=== PATIENT | female | born 1965 | race African-American/Black ===

== ENCOUNTER 2022-08-15 14:44 | Emergency (ER) | payer OTHER, SELFPAY ==
[2022-08-15 15:17] VITALS: BP 110/66; PULSE 92; RESP 18; TEMP 36.6; O2SAT 95; BMI 23.2
--- NOTE | 2022-08-15 15:20 | ED_ITS ---
HPI - General Adult General Chief complaint: Psychiatric Symptoms Stated complaint: crisis Time Seen by Provider: 08/15/22 16:09 Source: patient Mode of arrival: ambulatory Limitations: no limitations History of Present Illness HPI narrative: Is a 56-year-old female with a past medical history of hypertension, diabetes, bipolar disorder, depression, polysubstance use and alcohol use who presents to the ER with complaints of increasing depression over the last few weeks with no complaints of suicidal or homicidal ideations. Patient denies hallucinations. Patient reports she is smoking crack daily and drinking about half a pt of alcohol daily. Patient reports she is taking medication for depression but she is unsure of the names of the medication. She does her prescribing psychiatrist but does not have a current therapist. Related Data Home Medications Medication Instructions Recorded Confirmed amlodipine 10 mg tablet 10 mg PO DAILY 08/15/22 08/15/22 aripiprazole 15 mg tablet (Abilify) 15 mg PO DAILY 08/15/22 08/15/22 aspirin 81 mg chewable tablet 81 mg PO DAILY 08/15/22 08/15/22 budesonide-formoterol HFA 160 2 puff inhalation BID 08/15/22 08/15/22 mcg-4.5 mcg/actuation aerosol inhaler (Symbicort) citalopram 40 mg tablet 40 mg PO DAILY 08/15/22 08/15/22 ibuprofen 800 mg tablet 800 mg PO TID PRN Pain 08/15/22 08/15/22 losartan 50 mg tablet (Cozaar) 50 mg PO DAILY 08/15/22 08/15/22 oxcarbazepine 300 mg tablet 300 mg PO BID 08/15/22 08/15/22 oxybutynin chloride 5 mg tablet 5 mg PO BID 08/15/22 08/15/22 pregabalin 50 mg capsule 50 mg PO BID 08/15/22 08/15/22 simvastatin 20 mg tablet 20 mg PO BEDTIME 08/15/22 08/15/22 albuterol sulfate 90 mcg/actuation 1 puff inhalation Q4H PRN 08/16/22 08/16/22 aerosol inhaler (Ventolin HFA) Shortness Of Breath Or Wheezing Allergies Allergy/AdvReac Type Severity Reaction Status Date / Time No Known Allergies Allergy Verified 08/15/22 15:17 Review of Systems Review of Systems: Yes all other systems are reviewed and are negative Constitutional: Constitutional: Reports no additional constitutional complaints, Denies body ache(s), Denies chills, Denies fever(s), Denies headache(s) and Denies weakness Eyes: Eyes: Reports no additional eye complaints and Denies change in vision ENT: Reports system reviewed and no additional complaints, except as documented, Denies dizziness, Denies headache(s), Denies nasal congestion, Denies nasal discharge and Denies neck pain Cardiovascular: Cardiovascular: Reports no additional cardiovascular complaints, Denies chest pain, Denies leg edema and Denies dyspnea Respiratory: Respiratory: Reports no additional respiratory complaints, Denies cough and Denies dyspnea Gastrointestinal: Gastrointestinal: Reports no additional gastrointestinal complaints, Denies abdominal pain, Denies diarrhea, Denies nausea and Denies vomiting Genitourinary: Genitourinary: Reports no additional female genitourinary complaints and Denies urinary incontinence Musculoskeletal: Musculoskeletal: Reports no additional musculoskeletal complaints, Denies back pain, Denies arthralgias, Denies joint swelling, Denies neck pain, Denies numbness and Denies tingling Integumentary/Breasts: Skin/Breast: Reports system reviewed and no additional complaints, except as docu and Denies rash Neurologic: Reports system reviewed and no additional complaints, except as documented, Denies dizziness, Denies headache(s), Denies numbness, Denies tingling and Denies weakness Psychiatric: Psychiatric: Reports depression, Denies homicidal ideation and Denies suicidal ideation [facility] Past Medical History Attestation statement: The following information was validated with the patient. Source: old records reviewed and nursing notes reviewed Social History Social History Alcohol intake: former Smoked in Last 30 Days: Yes Use of substances other than those prescribed or required for medical reasons: Yes Substance Use Type: Crack/Cocaine Substance Use Frequency: Occasionally Last Used Substance: Just Prior to Admission Advance Directives: No Advance Directives Information Provided: Yes Healthcare Proxy: No Guardian: No Physical Exam ED Vital Signs: Vital Signs - 24 hr 08/15/22 20:18 08/16/22 06:10 08/16/22 07:30 Temperature 98.9 F 98.2 F 97.9 F Pulse Rate 65 64 55 Respiratory Rate 16 16 16 Blood Pressure 124/75 183/96 H 163/85 H Pulse Oximetry 96 97 98 Oxygen Delivery Method Room Air Room Air Room Air 08/16/22 18:37 Temperature 97.8 F Pulse Rate 67 Respiratory Rate 15 Blood Pressure 130/69 Pulse Oximetry 98 Oxygen Delivery Method Room Air BMI result Body Mass Index 23.2 Const General: cooperative, healthy appearing, comfortable and no acute distress Orientation/consciousness: patient oriented x3 Limitations: no limitations HENMT Head: Yes normal to inspection Ears: hearing grossly normal bilaterally Eyes General: appearance normal, both eyes and all related structures Neck Neck: Yes normal visual inspection Chest Chest palpation & inspection: normal inspection of the chest Resp Effort & Inspection: normal respiratory effort Neuro General: patient oriented x3 and moves all extremities Cognition (Neuro): normal cognition Course Course Course Narrative: This is an RME: Additional HPI, ROS, PE not included below will be deferred to primary provider. [id number], hx of substance abuse and etoh abuse, presenting to the emergency department with complaints of worsening depression x last month. Endorsing SI without a plan. No HI. Living in [place] unhappy with living circumstances. Used cracked just prior to arrival. Plan: Call over to psych pod, pt moved over. Reevaluation(s) Reevaluation #1: Patient placed in physician observation pending disposition, eval by care team Reevaluation #2: physician observation continued: cooperative day and night, is a dual bedsearch. Will remain in observation until she improves or a bed is found Time: 12:54 Reevaluation #3: Patient is awake, alert, oriented x3, patient declined any SI or HI, patient would like to be discharged home, [facility] and will arrange for transportation to home. Time: 20:04 Medications Administered Generic Name Dose Route Start Last Admin Trade Name Freq PRN Reason Stop Dose Admin Amlodipine Besylate 10 mg 08/16/22 09:00 08/16/22 08:02 Amlodipine Besylate 10 Mg Tablet PO Not Given DAILY CHAVEZ Protocol Aripiprazole 15 mg 08/16/22 09:00 08/16/22 08:44 Aripiprazole 15 Mg Tablet PO 15 mg DAILY CHAVEZ Administration Aspirin 81 mg 08/16/22 09:00 08/16/22 08:44 Aspirin 81 Mg Tab.Chew PO 81 mg DAILY CHAVEZ Administration Escitalopram Oxalate 20 mg 08/16/22 09:00 08/16/22 08:44 Escitalopram Oxalate 20 Mg Tablet PO 20 mg DAILY CHAVEZ Administration Fluticasone/Vilanterol 1 puff 08/16/22 08:00 08/16/22 08:46 Fluticasone/Vilanterol 200/25 Blst.W.Dev INHALE 1 puff RBID CHAVEZ Administration Ibuprofen 800 mg 08/16/22 09:00 08/16/22 15:40 Ibuprofen 800 Mg Tablet PO 800 mg TID CHAVEZ Administration Losartan Potassium 50 mg 08/16/22 09:00 08/16/22 08:02 Losartan Potassium 50 Mg Tablet PO Not Given DAILY CHAVEZ Protocol Oxcarbazepine 300 mg 08/16/22 09:00 08/16/22 08:44 Oxcarbazepine 300 Mg Tablet PO 300 mg BID CHAVEZ Administration Oxybutynin Chloride 5 mg 08/16/22 09:00 08/16/22 10:17 Oxybutynin Chloride 5 Mg Tablet PO 5 mg BID CHAVEZ Administration Pregabalin 50 mg 08/16/22 09:00 08/16/22 08:44 Pregabalin 50 Mg Capsule PO 50 mg BID CHAVEZ Administration Discontinued Medications Generic Name Dose Route Start Last Admin Trade Name Freq PRN Reason Stop Dose Admin Amlodipine Besylate 10 mg 08/16/22 07:34 08/16/22 07:39 Amlodipine Besylate 10 Mg Tablet PO 08/16/22 07:35 10 mg ONCE ONE Administration Protocol Losartan Potassium 50 mg 08/16/22 07:34 08/16/22 07:39 Losartan Potassium 50 Mg Tablet PO 08/16/22 07:35 50 mg ONCE ONE Administration Protocol Medical Decision Making Medical Decision Making MDM Narrative: 56-year-old female with a history of bipolar disorder, depression, polysubstance use presents to the ER with increasing depression over the last few weeks with no complaints of SI, HI, hallucinations. Patient reports daily crack and alcohol use. Patient with no physical complaints. No concern for acute ingestion or trauma Patient will need screening labs, drug screen and once medically cleared will need a crisis evaluation Differential Diagnosis Differential Diagnoses: The differential diagnosis associated with the presentation includes Bipolar disorder, depression, adjustment disorder, polysubstance use Consult Healthcare Provider Management of the patient was discussed with: Junior Automation Engineer Lab Data MDM Lab Attestation statement: I reviewed the patient's lab results. 08/15/22 15:36 08/15/22 15:36 Labs: Lab Results 08/15/22 08/15/22 08/15/22 Range/Units 15:36 15:36 16:09 WBC 4.8 (4.8-10.8) X10*3/uL RBC 4.42 (4.20-5.50) X10*6/uL Hgb 13.3 (12.0-16.0) g/dl Hct 39.8 (37.0-47.0) % MCV 90.0 (80.0-98.0) fL MCH 30.1 (27.0-33.0) pg MCHC 33.4 (31.0-35.0) g/dl RDW 13.4 (11.0-16.0) % Plt Count 210 (160-400) X10*3/uL MPV 10.1 (9.4-12.3) fL Immature Gran % (Auto) 0.4 (0.0-0.4) % Neut % (Auto) 54.0 (45-73) % Lymph % (Auto) 37.3 (20-40) % [place] % (Auto) 5.2 (2-11) % Eos % (Auto) 2.3 (0-4) % Baso % (Auto) 0.8 (0-2) % Lymph # (Auto) 1.8 (1.2-4.9) X10*3/uL [place] # (Auto) 0.3 (0.1-1.2) X10*3/uL Eos # (Auto) 0.1 (0.0-0.4) X10*3/uL Baso # (Auto) 0.0 (0.0-0.2) X10*3/uL Abs Immat Gran (auto) 0.02 (0.00-0.03) X10*3/uL Absolute Neuts (auto) 2.6 (2.0-8.3) x10*3/uL Absolute Nucleated RBC 0.000 (0.0-0.012) X10*3/uL Nucleated RBC % (auto) 0.0 (0.0-0.2) /100WBC Sodium 141 (135-145) mmol/L Potassium 3.9 (3.3-5.1) mmol/L Chloride 106 (96-108) mmol/L Carbon Dioxide 26 (22-29) mmol/L Anion Gap 13 (12-20) BUN 22 H (9-16) mg/dL Creatinine 1.32 (0.5-1.4) mg/dL Estim Creat Clear Calc 45.1 Estimated GFR 41 Random Glucose 136 H (60-115) mg/dL Calcium 9.2 (8.4-10.2) mg/dL Total Bilirubin 0.3 (0.0-1.0) mg/dL Direct Bilirubin 0.1 (0.0-0.5) mg/dL AST 25 (5-31) U/L ALT 21 (0-31) U/L Alkaline Phosphatase 83 (39-117) U/L Total Protein 7.2 (6.5-8.0) g/dL Albumin 3.7 (3.5-5.0) g/dL Urine Color Urine Appearance Urine pH (5.0-9.0) Ur Specific [place] (1.005-1.025) Urine Protein (Neg-Trace) mg/dL Urine Glucose (UA) (Negative) mg/dL Urine Ketones (Negative) mg/dL Urine Blood (Negative) Urine Nitrite (Negative) Ur Leukocyte Esterase (Negative) Urine RBC (0-2) /HPF Urine WBC (0-5) /HPF Urine WBC Clumps Ur Squamous Epith Cells (0-2) /HPF Ur Transition Epith Cell Ur Renal Epithelial Cell Calcium Oxalate Crystal Leucine Crystals Cystine Crystals Tyrosine Crystals Other Crystals Urine Bacteria (None Seen) Urine Parasites Bilirubin Casts Epithelial Casts Fatty Casts Hyaline Casts (0-2) /LPF Granular Casts Waxy Casts Broad Casts RBC Casts WBC Casts Other Casts Urine Trichomonas Urine Yeast Urine Opiates Screen (Not Detect) Urine Fentanyl Screen (Not Detect) Ur Barbiturates Screen (Not Detect) Ur Phencyclidine Scrn (Not Detect) Ur Amphetamines Screen (Not Detect) U Benzodiazepines Scrn (Not Detect) Urine Cocaine Screen (Not Detect) U Marijuana (THC) Screen (Not Detect) Ethyl Alcohol < 10 mg/dL COVID-19 (MAVIS) Negative (Negative) COVID-19 Clin Com See Note 08/15/22 08/15/22 08/15/22 Range/Units 18:52 18:52 18:52 WBC (4.8-10.8) X10*3/uL RBC (4.20-5.50) X10*6/uL Hgb (12.0-16.0) g/dl Hct (37.0-47.0) % MCV (80.0-98.0) fL MCH (27.0-33.0) pg MCHC (31.0-35.0) g/dl RDW (11.0-16.0) % Plt Count (160-400) X10*3/uL MPV (9.4-12.3) fL Immature Gran % (Auto) (0.0-0.4) % Neut % (Auto) (45-73) % Lymph % (Auto) (20-40) % [place] % (Auto) (2-11) % Eos % (Auto) (0-4) % Baso % (Auto) (0-2) % Lymph # (Auto) (1.2-4.9) X10*3/uL [place] # (Auto) (0.1-1.2) X10*3/uL Eos # (Auto) (0.0-0.4) X10*3/uL Baso # (Auto) (0.0-0.2) X10*3/uL Abs Immat Gran (auto) (0.00-0.03) X10*3/uL Absolute Neuts (auto) (2.0-8.3) x10*3/uL Absolute Nucleated RBC (0.0-0.012) X10*3/uL Nucleated RBC % (auto) (0.0-0.2) /100WBC Sodium (135-145) mmol/L Potassium (3.3-5.1) mmol/L Chloride (96-108) mmol/L Carbon Dioxide (22-29) mmol/L Anion Gap (12-20) BUN (9-16) mg/dL Creatinine (0.5-1.4) mg/dL Estim Creat Clear Calc Estimated GFR Random Glucose (60-115) mg/dL Calcium (8.4-10.2) mg/dL Total Bilirubin (0.0-1.0) mg/dL Direct Bilirubin (0.0-0.5) mg/dL AST (5-31) U/L ALT (0-31) U/L Alkaline Phosphatase (39-117) U/L Total Protein (6.5-8.0) g/dL Albumin (3.5-5.0) g/dL Urine Color Yellow Cancelled Urine Appearance Clear Cancelled Urine pH 6.0 Cancelled (5.0-9.0) Ur Specific [place] 1.025 Cancelled (1.005-1.025) Urine Protein 30 (1+) H Cancelled (Neg-Trace) mg/dL Urine Glucose (UA) Negative Cancelled (Negative) mg/dL Urine Ketones Trace Cancelled (Negative) mg/dL Urine Blood Negative Cancelled (Negative) Urine Nitrite Negative Cancelled (Negative) Ur Leukocyte Esterase Moderate (2+) H Cancelled (Negative) Urine RBC 0-2 Cancelled (0-2) /HPF Urine WBC 6-10 H Cancelled (0-5) /HPF Urine WBC Clumps Cancelled Ur Squamous Epith Cells 3-5 Cancelled (0-2) /HPF Ur Transition Epith Cell Cancelled Ur Renal Epithelial Cell Cancelled Calcium Oxalate Crystal Cancelled Leucine Crystals Cancelled Cystine Crystals Cancelled Tyrosine Crystals Cancelled Other Crystals Cancelled Urine Bacteria None Seen Cancelled (None Seen) Urine Parasites Cancelled Bilirubin Casts Cancelled Epithelial Casts Cancelled Fatty Casts Cancelled Hyaline Casts 0-2 Cancelled (0-2) /LPF Granular Casts Cancelled Waxy Casts Cancelled Broad Casts Cancelled RBC Casts Cancelled WBC Casts Cancelled Other Casts Cancelled Urine Trichomonas Cancelled Urine Yeast Cancelled Urine Opiates Screen Not Detected (Not Detect) Urine Fentanyl Screen Not Detected (Not Detect) Ur Barbiturates Screen Not Detected (Not Detect) Ur Phencyclidine Scrn Not Detected (Not Detect) Ur Amphetamines Screen Not Detected (Not Detect) U Benzodiazepines Scrn Not Detected (Not Detect) Urine Cocaine Screen POSITIVE H (Not Detect) U Marijuana (THC) Screen POSITIVE H (Not Detect) Ethyl Alcohol mg/dL COVID-19 (MAVIS) (Negative) COVID-19 Clin Com Discharge Plan Discharge Clinical Impression: Bipolar disorder Patient Disposition: Still a Patient Prescriptions: No Action budesonide-formoterol [Symbicort] 160-4.5 mcg/actuation Hfa Aerosol Inhaler 2 puff INHALATION BID Rx Instructions: last filled 08/08/22 amlodipine 10 mg Tablet 10 mg PO DAILY Rx Instructions: last filled 08/02/22 90 day supply citalopram 40 mg Tablet 40 mg PO DAILY Rx Instructions: last filled 08/07/22 90 day supply aspirin [Aspirin Child] 81 mg Tablet,Chewable 81 mg PO DAILY Rx Instructions: last filled 07/25/22 90 day supply oxybutynin chloride 5 mg Tablet 5 mg PO BID pregabalin 50 mg Capsule 50 mg PO BID simvastatin 20 mg Tablet 20 mg PO BEDTIME Rx Instructions: last filled 07/25/22 90 day supply aripiprazole [Abilify] 15 mg Tablet 15 mg PO DAILY Rx Instructions: last filled 07/16/22 90 day supply ibuprofen 800 mg Tablet 800 mg PO TID PRN (Reason: Pain) Rx Instructions: last filled 07/17/22 90 day supply oxcarbazepine 300 mg Tablet 300 mg PO BID Rx Instructions: last filled 06/20/22 90 day supply losartan [Cozaar] 50 mg Tablet 50 mg PO DAILY Rx Instructions: last filled 06/21/22 90 day supply albuterol sulfate [Ventolin HFA] 90 mcg/actuation HFA aerosol inhaler 1 puff inhalation Q4H PRN (Reason: Shortness Of Breath Or Wheezing) Interventions: Mcgill-Suicide Risk Severity Scale Last Done: 08/16/22 19:11
[2022-08-15 15:42] LABS: MANUAL DIFF FLAG NO
[2022-08-15 15:46] LABS: Basophils Percent Auto 0.8 % (0-2); Eosinophils Absolute Auto 0.1 X10*3/uL (0.0-0.4); Eosinophils Percent Auto 2.3 % (0-4); Hematocrit 39.8 % (37.0-47.0); Hemoglobin 13.3 g/dl (12.0-16.0); Imm Gran Abs Auto 0.02 X10*3/uL (0.00-0.03); Imm Gran Pct Auto 0.4 % (0.0-0.4); Lymphocytes Absolute Auto 1.8 X10*3/uL (1.2-4.9); Lymphocytes Percent Auto 37.3 % (20-40); Mean Corpuscular HGB Conc 33.4 g/dl (31.0-35.0); Mean Corpuscular Hemoglobin 30.1 pg (27.0-33.0); Mean Platelet Volume 10.1 fL (9.4-12.3); Monocytes Absolute Auto 0.3 X10*3/uL (0.1-1.2); Monocytes Percent Auto 5.2 % (2-11); Neutrophils Absolute Auto 2.6 x10*3/uL (2.0-8.3); Platelet Count 210 X10*3/uL (160-400); Red Blood Count 4.42 X10*6/uL (4.20-5.50); Red Cell Distribution Width 13.4 % (11.0-16.0); White Blood Count 4.8 X10*3/uL (4.8-10.8)
[2022-08-15 16:09] LABS: Alanine Aminotransferase 21 U/L (0-31); Albumin Level 3.7 g/dL (3.5-5.0); Alkaline Phosphatase 83 U/L (39-117); Anion Gap 13 (12-20); Aspartate Amino Transferase 25 U/L (5-31); Bilirubin Direct 0.1 mg/dL (0.0-0.5); Bilirubin Total 0.3 mg/dL (0.0-1.0); Blood Urea Nitrogen 22 mg/dL (9-16); Calcium 9.2 mg/dL (8.4-10.2); Carbon Dioxide 26 mmol/L (22-29); Chloride 106 mmol/L (96-108); Creatinine Clr Calc Pharmacy 45.1; Estimated Glomerular Filt Rate 41; Ethanol < 10 mg/dL; Glucose Random 136 mg/dL (60-115); Potassium 3.9 mmol/L (3.3-5.1); Sodium 141 mmol/L (135-145); Total Protein 7.2 g/dL (6.5-8.0)
--- NOTE | 2022-08-15 16:12 | PC.NURSE ---
Meds verified with [facility] [address] [address] [facility] [id number]
[2022-08-15 16:35] LABS: COVID-19 Test Negative (Negative); IDNOW Serial# 08D9AD1C
[2022-08-15 19:08] LABS: Appearance Urine Clear; Color Urine Yellow; Glucose Urine UA Negative (Negative); Leukocyte Esterase Urine Moderate (2+) (Negative); Nitrite Urine Negative (Negative); Specific Gravity - Urine 1.025 (1.005-1.025); UMIC TRIGGER UACC YES; Urine Blood Negative (Negative); Urine Ketones Trace mg/dL (Negative); Urine Protein 30 (1+) mg/dL (Neg-Trace)
[2022-08-15 19:13] LABS: Bacteria Urine None Seen (None Seen); Hyaline Casts Urine 0-2 /LPF (0-2); RBC Urine 0-2 /HPF (0-2); UACC Culture Trigger YES
[2022-08-15 19:23] LABS: Amphetamine Screen Urine Not Detected (Not Detect); Barbiturates, Urine Not Detected (Not Detect); Benzodiazepines Screen Urine Not Detected (Not Detect); Cannabinoid Screen Urine POSITIVE (Not Detect); Cocaine Screen Urine POSITIVE (Not Detect); Fentanyl, urine Not Detected (Not Detect); Opiate Screen Urine Not Detected (Not Detect); Phencyclidine Screen Urine Not Detected (Not Detect)
--- NOTE | 2022-08-15 19:25 | MHC.CARE ---
CARE TEAM attempted to meet with patient in pod 1. She was observed falling in and out of sleep; and unable to focus on assessment questions. CARE TEAM will assess in the morning to determine appropriate disposition.
[2022-08-15 20:18] VITALS: BP 124/75; PULSE 65; RESP 16; TEMP 37.2; O2SAT 96
[2022-08-16 06:10] VITALS: BP 183/96; PULSE 64; RESP 16; TEMP 36.8; O2SAT 97
--- NOTE | 2022-08-16 06:23 | PC.NURSE ---
Patient slept through the night, no distress observed/reported, respiration +/=/non-labored bilaterally, med rec completed/pending provider's approval, behavior non concerning, labs completed/reported, no safety concerns at this time, Care team attempted to assess the patient but patient was unable to cooperate with assessment d/t drowsiness, will continue to monitor.
--- NOTE | 2022-08-16 07:27 | PHA.MEDREC ---
Pharmacy Consult ? Medication Reconciliation Pharmacy has completed the medication reconciliation. spoke with patient and confirmed medications.
[2022-08-16 07:30] VITALS: BP 163/85; PULSE 55; RESP 16; TEMP 36.6; O2SAT 98
[2022-08-16] MEDS: Losartan Potassium 50 MG TABLET PO (07:39)
[2022-08-16] MEDS: amLODIPine Besylate 10 MG TABLET PO (07:39)
[2022-08-16] MEDS: ARIPiprazole 15 MG TABLET PO (08:44)
[2022-08-16] MEDS: Pregabalin 50 MG CAPSULE PO (08:44)
[2022-08-16] MEDS: Ibuprofen 800 MG TABLET PO ×2 (08:44→15:40)
[2022-08-16] MEDS: Aspirin 81 MG TAB.CHEW PO (08:44)
[2022-08-16] MEDS: Escitalopram Oxalate 20 MG TABLET PO (08:44)
[2022-08-16] MEDS: OXcarbazepine 300 MG TABLET PO (08:44)
[2022-08-16] MEDS: Fluticasone/Vilanterol 200/25 BLST.W.DEV 1 PUFF INHALE (08:46)
[2022-08-16] MEDS: oxyBUTYnin chloride 5 MG TABLET PO (10:17)
--- NOTE | 2022-08-16 12:47 | MHC.CARE ---
Pt seen by CARE team, disposition is for dual diagnosis bed search.
--- NOTE | 2022-08-16 13:58 | MHC.RECOVRN ---
Met with pt briefly, along with SW, to discuss desire for ATS. Pt reports using 3.5 grams crack cocaine daily, INH as well as 1/2 pint alcohol once per week and marijuana. Pt is interested in ATS. Pt educated regarding ATS availability for stimulant use, agreeable to referral to [facility]. Referral placed, awaiting notification of bed availability.
--- NOTE | 2022-08-16 14:47 | MHC.CARE ---
Pt seen by CARE team and referred to hospital recovery team.
--- NOTE | 2022-08-16 14:56 | MHC.RECOVRN ---
Addendum entered by Maribeth Murphy 08/17/22 07:57: Pt provided with recovery resources prior to dc. Original Note: [facility] does not have bed availability. CARE Team aware.
[2022-08-16 18:37] VITALS: BP 130/69; PULSE 67; RESP 15; TEMP 36.6; O2SAT 98
== END 2022-08-16 20:21 | disposition admitted as inpatient to this hospital (09) ==
PROVIDERS: Physician Assistant Medical; Emergency Provider Student in an Organized Health Care Education/Training Program
DX: F33.1 Major depressive disorder, recurrent, moderate (principal); F14.10 Cocaine abuse, uncomplicated; Z20.822 Contact with and (suspected) exposure to COVID-19; Z20.828 Contact with and (suspected) exposure to other viral communicable diseases; Z79.899 Other long term (current) drug therapy
CPT/HCPCS: 36415; 80048; 80076; 80307; 81001; 85025; 87086; 87635; 99285; S9485